=== PATIENT | female | born 1950 | race African-American/Black ===

== ENCOUNTER 2017-05-03 09:06 | Emergency (ER) | payer MEDICARE ==
[~2017-05-03] VITALS: Ht 167.6 cm; Wt 81.8 kg
[2017-05-03 09:10] VITALS: TEMP 97.9
[2017-05-03] MEDS ORDERED: ASPIRIN 81M81 MG/TA2 PO (09:33)
[2017-05-03] MEDS ORDERED: VALIUM 10MG10 MG/TAB PO (09:34)
[2017-05-03] MEDS ORDERED: VALIUM 5MG T5 MG/TAB PO (10:27)
[2017-05-03] MEDS ORDERED: NORCO 325 MG-51 TAB PO (10:27)
[2017-05-03 11:13] VITALS: BP 140/66; PULSE 68
== END 2017-05-03 11:14 | disposition home or self-care (01) ==
LOC: COL.ER 09:06
DX: M54.5 Low back pain (principal); Z98.51 Tubal ligation status; X50.0XXA Overexertion from strenuous movement or load, initial encounter
CPT/HCPCS: J2270; J2550

== ENCOUNTER → 2018-08-09 | Outpatient (CLI) | payer MEDICARE ==
[~2018-08-09] MED LIST: ASPIRIN 81M81 MG/TA2 PO; LOPRESSOR 225 MG/TAB PO; NORCO 325 MG-51 TAB PO; PLAVIX 75MG TAB75 MG PO; VALIUM 10MG10 MG/TAB PO; VALIUM 5MG T5 MG/TAB PO; ZANTAC 7575 MG PO
== END ==
LOC: MC.RAD 06-23 13:00
DX: Z12.31 Encounter for screening mammogram for malignant neoplasm of breast (principal)

== ENCOUNTER 2020-03-21 12:31 | Emergency (ER) | payer MEDICARE ==
[~2020-03-21] VITALS: Ht 167.6 cm; Wt 90.9 kg
[2020-03-21 12:35] VITALS: BP 140/81; TEMP 98.5
[2020-03-21] MEDS ORDERED: FLEXERIL5 MG PO (15:51)
[2020-03-21 16:00] VITALS: PULSE 66
== END 2020-03-21 16:00 | disposition home or self-care (01) ==
LOC: COL.ER 12:31
DX: S39.012A Strain of muscle, fascia and tendon of lower back, initial encounter (principal); I10 Essential (primary) hypertension; Z98.51 Tubal ligation status; Z79.82 Long term (current) use of aspirin; Z79.02 Long term (current) use of antithrombotics/antiplatelets; X50.0XXA Overexertion from strenuous movement or load, initial encounter
CPT/HCPCS: J1885

== ENCOUNTER → 2020-07-09 | Outpatient (CLI) | payer MEDICARE ==
[~2020-07-09] MED LIST changes: +FLEXERIL5 MG PO
== END ==
LOC: MC.RAD 13:30
DX: Z12.31 Encounter for screening mammogram for malignant neoplasm of breast (principal)

== ENCOUNTER 2021-06-13 18:06 | Emergency (ER) | payer MEDICARE ==
[~2021-06-13] VITALS: Ht 160 cm; Wt 108.6 kg
[2021-06-13 18:35] VITALS: TEMP 97
[2021-06-13] MEDS ORDERED: MEDROL 4MG DOSPA4 MG PO (19:11)
[2021-06-13] MEDS ORDERED: NORCO 325 MG-51 TAB PO (19:11)
[2021-06-13 19:26] VITALS: BP 151/83; PULSE 70
== END 2021-06-13 19:26 | disposition home or self-care (01) ==
LOC: COL.ER 18:06
DX: M54.50 Low back pain, unspecified (principal); I10 Essential (primary) hypertension; Z79.899 Other long term (current) drug therapy

== ENCOUNTER 2022-01-31 08:45 | Emergency (ER) | payer MEDICARE ==
[~2022-01-31] VITALS: Ht 160 cm; Wt 86.4 kg
[~2022-01-31 08:45] MED LIST changes: +MEDROL 4MG DOSPA4 MG PO
[2022-01-31 08:56] VITALS: BP 183/73; TEMP 98.4
[2022-01-31] MEDS ORDERED: FLEXERIL 1010 MG/TAB PO (09:30)
[2022-01-31 09:35] VITALS: PULSE 58
[2022-01-31] MEDS ORDERED: NORCO 325 MG-51 TAB PO (17:19)
== END 2022-01-31 09:40 | disposition home or self-care (01) ==
LOC: COL.ER 08:45
DX: M54.50 Low back pain, unspecified (principal); Z91.040 Latex allergy status; X50.0XXA Overexertion from strenuous movement or load, initial encounter
CPT/HCPCS: J1885; J2360

== ENCOUNTER 2022-01-31 16:40 | Emergency (ER) | payer MEDICARE ==
[~2022-01-31] VITALS: Ht 160 cm; Wt 81.8 kg
[~2022-01-31 16:40] MED LIST changes: +FLEXERIL 1010 MG/TAB PO
[2022-01-31 16:58] VITALS: TEMP 96.3
[2022-01-31] MEDS ORDERED: NORCO 325 MG-51 TAB PO (17:19)
[2022-01-31 19:46] VITALS: BP 153/69; PULSE 55
== END 2022-01-31 18:39 | disposition home or self-care (01) ==
LOC: COL.ER 16:40
DX: M54.50 Low back pain, unspecified (principal); Z91.040 Latex allergy status
CPT/HCPCS: J2270

== ENCOUNTER 2022-02-24 13:30 | Outpatient (RCR) | payer MEDICARE | END 2022-03-02 | disposition home or self-care (01) | LOC: MKS.ESL.PT | DX: M54.50 Low back pain, unspecified (principal); R29.898 Other symptoms and signs involving the musculoskeletal system; G89.29 Other chronic pain ==

== ENCOUNTER 2022-03-25 15:00 | Outpatient (RCR) | payer MEDICARE | END 2022-04-02 | disposition home or self-care (01) | LOC: MKS.ESL.PT | DX: M54.50 Low back pain, unspecified (principal); R29.898 Other symptoms and signs involving the musculoskeletal system; G89.29 Other chronic pain ==

== ENCOUNTER 2023-12-15 00:50 | Emergency (ER) | payer MEDICARE ==
[~2023-12-15] VITALS: Ht 157.5 cm; Wt 108.2 kg
[~2023-12-15 00:50] MED LIST changes: +ULTRAM 50MG TAB50 MG PO
[2023-12-15 01:19] VITALS: TEMP 97.5
[2023-12-15] MEDS ORDERED: VALTREX1 GM PO (01:46)
[2023-12-15 02:03] VITALS: BP 183/79; PULSE 60
== END 2023-12-15 02:02 | disposition home or self-care (01) ==
LOC: COL.ER 00:50
DX: B02.9 Zoster without complications (principal); Z91.040 Latex allergy status

== ENCOUNTER 2024-04-10 05:21 | Emergency (ER) | payer MEDICARE ==
[~2024-04-10] VITALS: Ht 157.5 cm; Wt 87.3 kg
[~2024-04-10 05:21] MED LIST changes: +VALTREX1 GM PO
[2024-04-10 05:27] VITALS: BP 168/87; TEMP 97.9
[2024-04-10] MEDS ORDERED: Ketorolac 15 MG/ML VIAL IM ONE (05:45)
[2024-04-10] MEDS ORDERED: fentaNYL 50 MCG/ML 2 ML VIAL IM ONE (05:45)
[2024-04-10] MEDS ORDERED: dexAMETHasone 10 MG/ML VIAL PO ONE (05:45)
[2024-04-10] MEDS ORDERED: HYDROmorphone 0.5 MG/0.5 ML SYRINGE IM ONE (06:15)
[2024-04-10] MEDS ORDERED: ROBAXIN 50500 MG/TAB PO (06:41)
[2024-04-10] MEDS ORDERED: ULTRAM 50MG TAB50 MG PO (06:41)
[2024-04-10] MEDS ORDERED: PERCOCET 325 MG1 TA2 PO (06:48)
[2024-04-10] MEDS ORDERED: oxyCODONE/Acetaminophen 10-325 MG TAB PO ONE (07:00)
[2024-04-10 07:01] VITALS: PULSE 62
== END 2024-04-10 07:03 | disposition home or self-care (01) ==
LOC: COL.ER 05:21
DX: M54.50 Low back pain, unspecified (principal); Z91.040 Latex allergy status
CPT/HCPCS: J1100; J1170; J1885; J2360; J3010